=== PATIENT | female | born 1970 | race Caucasian/White ===

== ENCOUNTER 2024-11-11 00:41 | Observation (INO) | payer BC, OTHER ==
[2024-11-11 01:30] LABS: Bacteria/HPF None Seen HPF (None Seen); CAUTI Indications for Culture Dysuria,urgency,freq; Glucose, Urine (Dipstick) Normal (Negative); Leukocyte 250 Leu/uL (Negative); Protein, Urine (Dipstick) Negative (Neg-Trace); RBC/HPF None Seen HPF (0-3); Specific Gravity, Urine 1.003 (1.002-1.036); WBC/HPF 0-3 HPF (0-3)
[2024-11-11 01:34] LABS: Urine Culture Reflex No No
[2024-11-11] MEDS ORDERED: Ketorolac Tromethamine 30 MG (1 mL) VIAL ONE ×2 (02:20→11:57)
[2024-11-11 02:34] LABS: #Basophils 0.08 10x3/uL (0.0-0.2); #Eosinophils 0.26 10x3/uL (0.0-0.7); #Monocytes 1.12 10x3/uL (0.11-0.59); #Neutrophils 10.13 10x3/uL (1.40-6.50); %Basophils 0.5 % (0.0-1.0); %Eosinophils 1.7 % (0.0-10.0); %Lymphocytes 24.6 % (21.0-51.0); %Monocytes 7.3 % (0.0-10.0); %Neutrophils 65.6 % (42.0-75.0); Hematocrit 39.4 % (36.0-47.0); Hemoglobin 12.8 g/dL (12.0-16.0); Mean Corpuscular Hemoglobin 29.5 pg (27.0-31.0); Mean Corpuscular Volume 90.8 fL (78.0-98.0); Platelet Count 270 10x3/uL (130-400); Red Blood Cell (RBC) Count 4.34 mill/uL (4.20-5.40); White Blood Cell (WBC) Count 15.43 10x3/uL (4.8-10.8)
[2024-11-11 02:37] LABS: Pregnancy Test - Urine (BHCG) Negative (Negative); Pregu Control Background? CLEAR/WHITE (CLR/WHITE); Pregu Control Bar Appear? YES (CONTROL BAR)
[2024-11-11 02:52] LABS: ALT (SGPT) 21 U/L (Less than 34); AST (SGOT) 31 U/L (11-34); Albumin 4.3 g/dL (3.1-4.5); Alkaline Phosphatase 77 U/L (40-110); Anion Gap 13 mmol/L (10-20); BUN (Urea Nitrogen) 7 mg/dL (9.8-20.1); Bilirubin, Total 0.4 mg/dL (0.3-1.2); Calc. Creatinine Clearance 0 mL/min (70-130); Calcium 9.8 mg/dL (7.8-10.44); Carbon Dioxide 25 mmol/L (22-29); Chloride 105 mmol/L (98-107); Globulin 2.9 g/dL (2.4-3.5); Glucose 96 mg/dL (70-105); Lipase 39 U/L (8-78); Magnesium 2.1 mg/dL (1.6-2.6); Potassium 3.3 mmol/L (3.5-5.1); Sodium 140 mmol/L (136-145)
[2024-11-11] MEDS ORDERED: metroNIDAZOLE 500 MG (100 mL) BAG ONE (06:44)
[2024-11-11] MEDS ORDERED: hydrALAZINE 20 MG/ML VIAL SLOW IVP PRN (06:53)
[2024-11-11] MEDS ORDERED: Ondansetron PF 4 MG/2 ML Vial IVP PRN (06:53)
[2024-11-11] MEDS ORDERED: Acetaminophen 325 MG TAB PO PRN (06:53)
[2024-11-11 07:24] LABS: Cocaine Metabolite Screen Negative (Negative); THC/Cannabinoid Screen Negative (Negative); Tricyclic Screen Negative (Negative)
[2024-11-11] MEDS ORDERED: Famotidine 20 MG TAB PO SCH (09:00)
[2024-11-11] MEDS ORDERED: Bupivacaine 0.25% HCL 30 ML VIAL ONE (11:23)
[2024-11-11] MEDS ORDERED: PROPOFOL 20 ML ONE (11:26)
[2024-11-11] MEDS ORDERED: fentaNYL PF 100 MCG/2 ML SYRINGE ONE (11:26)
[2024-11-11] MEDS ORDERED: Rocuronium Bromide 10 MG/ML (10ML VIAL) ONE (11:27)
[2024-11-11] MEDS ORDERED: Lidocaine 1% PF 5 ML VIAL ONE (11:27)
[2024-11-11] MEDS ORDERED: Ciprofloxacin Lactate D5W 400 mg (200 mL) BAG ONE (11:33)
[2024-11-11] MEDS ORDERED: Ondansetron PF 4 MG/2 ML Vial ONE (11:57)
[2024-11-11] MEDS ORDERED: PHENYLEPHRINE-NS 100 MCG/ML 10 ML SYRINGE ONE (12:10)
[2024-11-11] MEDS ORDERED: SUGAMMADEX SODIUM 200 MG/2 ML VIAL ONE (12:32)
== END 2024-11-11 15:00 | disposition home or self-care (01) ==
LOC: ERS 00:41 → INTOOBSV 06:57 → ERHOLD 06:57 → SURG A 08:39
PROVIDERS: ADMIT Surgery; ATTEND Surgery
PROC: 0FT44ZZ Resection of Gallbladder, Percutaneous Endoscopic Approach (ICD-10-PCS; principal; 2024-11-11)
DX: K81.1 Chronic cholecystitis (principal); Z88.1 Allergy status to other antibiotic agents; Z88.0 Allergy status to penicillin; Z88.2 Allergy status to sulfonamides; R30.0 Dysuria
CPT/HCPCS: 74176; 76705; 80053; 80306; 81001; 81025; 83690; 83735; 84484; 85025; 87086; 88304; 93005; 96365; 96366; 96375; C1713; C1894; J0169; J0665; J0744; J1100; J1885; J2704; S2900

== ENCOUNTER 2024-12-10 16:08 | Emergency (ER) | payer OTHER ==
[2024-12-10 17:17] LABS: #Basophils 0.06 10x3/uL (0.0-0.2); #Eosinophils 0.25 10x3/uL (0.0-0.7); #Monocytes 0.57 10x3/uL (0.11-0.59); #Neutrophils 5.26 10x3/uL (1.40-6.50); %Basophils 0.6 % (0.0-1.0); %Eosinophils 2.7 % (0.0-10.0); %Lymphocytes 33.9 % (21.0-51.0); %Monocytes 6.1 % (0.0-10.0); %Neutrophils 56.6 % (42.0-75.0); Hematocrit 39.5 % (36.0-47.0); Hemoglobin 12.8 g/dL (12.0-16.0); Mean Corpuscular Hemoglobin 29.6 pg (27.0-31.0); Mean Corpuscular Volume 91.2 fL (78.0-98.0); Platelet Count 259 10x3/uL (130-400); Red Blood Cell (RBC) Count 4.33 mill/uL (4.20-5.40); White Blood Cell (WBC) Count 9.30 10x3/uL (4.8-10.8)
[2024-12-10 17:32] LABS: CAUTI Indications for Culture Dysuria,urgency,freq; Glucose, Urine (Dipstick) Normal (Negative); Leukocyte 250 Leu/uL (Negative); Protein, Urine (Dipstick) Negative (Neg-Trace); RBC/HPF 0-3 HPF (0-3); Specific Gravity, Urine 1.011 (1.002-1.036)
[2024-12-10 17:34] LABS: Bacteria/HPF 1+ HPF (None Seen)
[2024-12-10 17:46] LABS: ALT (SGPT) 18 U/L (Less than 34); AST (SGOT) 28 U/L (11-34); Albumin 4.1 g/dL (3.1-4.5); Alkaline Phosphatase 86 U/L (40-110); Anion Gap 13 mmol/L (10-20); BUN (Urea Nitrogen) 7 mg/dL (9.8-20.1); Bilirubin, Total 0.3 mg/dL (0.3-1.2); Calc. Creatinine Clearance 0 mL/min (70-130); Calcium 9.4 mg/dL (7.8-10.44); Carbon Dioxide 26 mmol/L (22-29); Chloride 107 mmol/L (98-107); Globulin 3.1 g/dL (2.4-3.5); Glucose 94 mg/dL (70-105); Lipase 33 U/L (8-78); Potassium 3.6 mmol/L (3.5-5.1); Sodium 142 mmol/L (136-145)
[2024-12-10 17:50] LABS: Urine Culture Reflex No No
== END 2024-12-10 19:16 | disposition home or self-care (01) ==
LOC: ERS 16:08
DX: S30.11XA Contusion of abdominal wall, initial encounter (principal); S20.219A Contusion of unspecified front wall of thorax, initial encounter; E11.9 Type 2 diabetes mellitus without complications; F17.210 Nicotine dependence, cigarettes, uncomplicated; Y04.8XXA Assault by other bodily force, initial encounter
CPT/HCPCS: 71260; 74177; 80053; 81001; 83605; 83690; 84484; 85025; 93005